=== PATIENT | female | born 1965 | race Caucasian/White ===

== ENCOUNTER 2021-11-14 12:13 | Emergency (ER) | payer SELFPAY ==
[~2021-11-14] VITALS: Ht 170.2 cm; Wt 65.0 kg
[2021-11-14 13:36] LABS: ALANINE AMINOTRANSFERASE 42 U/L (12-78); ALBUMIN 4.2 G/DL (3.4-5.0); ALBUMIN/GLOBULIN RATIO 1.1 (1.1-1.5); ALKALINE PHOSPHATASE 72 IU/L (46-116); ANION GAP 12 (8-16); ASPARTATE AMINO TRANSFERASE 26 U/L (10-37); BILIRUBIN,TOTAL 0.6 MG/DL (0.1-1.0); BLOOD UREA NITROGEN 14 MG/DL (7-18); BUN/CREATININE RATIO 22.6 (6.6-38.0); CALCIUM 9.3 MG/DL (8.5-10.1); CHLORIDE 105 MMOL/L (99-107); CREATININE 0.62 MG/DL (0.40-0.90); GLUCOSE 99 MG/DL (70-104); POTASSIUM 3.7 MMOL/L (3.5-5.1); SODIUM 142 MMOL/L (135-145); TOTAL CARBON DIOXIDE 24.6 MMOL/L (24-32); TOTAL PROTEIN 8.1 G/DL (6.4-8.2); eGFR > 90 ML/MIN
[2021-11-14] MEDS ORDERED: CASIRIVIMAB/IMDEVIMAB inject. 10 ML in normal saline 100ml IV soln 100 ML IV ONE (13:55)
[2021-11-14] MEDS ORDERED: SOTROVIMAB 500 MG in NS 100ml IV soln IV ONE (15:00)
--- NOTE | 2021-11-14 16:51 | NUR ---
PT HAS READ FACT SHEET REGARDING SORTORVIAB, NO QUESTIONS, PT VERBALIZED SHE WOULD TO RECEIVE MEDICATIONS
[2021-11-14] MEDS ORDERED: BENZ-38 PO (17:12)
[2021-11-14 18:19] VITALS: BP 156/91
== END 2021-11-14 18:23 | disposition home or self-care (01) ==
LOC: ER 12:16
DX: U07.1 COVID-19 (principal); I10 Essential (primary) hypertension; E78.5 Hyperlipidemia, unspecified; E78.00 Pure hypercholesterolemia, unspecified; Z87.891 Personal history of nicotine dependence
CPT/HCPCS: 36415; 80053; 96365; 96366; 99284; J3490; Q0247; 96375